=== PATIENT | female | born 1955 | race Caucasian/White ===

== ENCOUNTER 2020-10-24 00:06 | Emergency (ER) | payer SELFPAY ==
[2020-10-24 00:33] VITALS: BP 137/85; PULSE 78; TEMP 97.8; BMI 22.2
[2020-10-24] MEDS ORDERED: IBUPROFEN 400 MG TABLET (FP) PO ONE ×2 (00:36→01:08)
== END 2020-10-24 03:07 | disposition left against medical advice (07) ==
LOC: JER 00:06
DX: S99.912A Unspecified injury of left ankle, initial encounter (principal); W19.XXXA Unspecified fall, initial encounter; Y92.9 Unspecified place or not applicable
CPT/HCPCS: 73610-TC-LT-FY; 73630-TC-LT; 99284-25